=== PATIENT | female | born 1975 | race African-American/Black ===

== ENCOUNTER 2017-04-03 09:43 | Inpatient (IN) ==
[2017-04-03] MEDS ORDERED: KETOROLAC 30 MG/1 ML VIAL IV STA (10:22)
[2017-04-03 10:42] LABS: Basophils % 0.2 % (0.0-0.8); Eosinophils # 0.1 10*3/uL (0.0-0.87); Eosinophils % 0.9 % (0.00-10.9); Hematocrit 26.7 VOL% (35.7-47.0); Hemoglobin 7.1 GM/DL (12.0-16.0); Immature Granulocytes % 0.8 %; Lymphocytes # 1.6 10*3/uL (1.4-4.0); Lymphocytes % 12.7 % (21.3-54.2); Mean Corpuscular HGB Conc 26.6 GM/DL (32-36); Mean Corpuscular Hemoglobin 16 PG (27-34); Mean Platelet Volume 8.7 FL (9.6-12.0); Monocytes % 7.5 % (1.7-12.7); Neutrophils % 77.9 % (38.7-73.9); Platelet Count 369 T/CUMM (130-400); Red Blood Count 4.45 MC/CUMM (3.8-5.5); Red Cell Distribution Width 23.1 % (9.3-17.3); White Blood Count 12.9 T/CUMM (4-12)
[2017-04-03] MEDS ORDERED: KETOROLAC 30 MG/1 ML VIAL ONE (10:51)
--- NOTE | 2017-04-03 11:02 | CT Report ---
History is dental abscess Axial images obtained through the facial bones following administration of 80 cc Omni 350 with 2-D multiplanar reconstruction images also stored and interpreted Findings: Patient is missing multiple teeth. There are large caries of the remaining upper molars on the left. There are several periapical lucencies involving several teeth of the maxilla anteriorly on the left. There are areas of associated anterior cortical dehiscence. Adjacent to this area, in the soft tissues anterior to the maxilla just left of midline, there is a loculated 1 x 2 cm fluid collection with surrounding inflammatory changes No intraorbital mass effect or fluid is seen. 8mm left submandibular nodes present. No paranasal sinus air-fluid levels are seen. No acute facial bone fracture identified. The nasal septum is 6 mm the left of midline with a large hunter bullosa on the right. Both maxillary sinus ostia are patent. Impression: Odontogenic disease including several periapical abscesses in the maxilla anteriorly on the left where there is adjacent facial soft tissue abscess. Please see above details The CT exam was performed using one or more of the following dose reduction techniques: Automated exposure control, adjustment of the mA and/or kV according to patient size, or use of iterative reconstruction technique. PROCEDURE INTERPRETED AT [facility] DEPARTMENT OF RADIOLOGY Final Report Signed by: Dr. Britt Bermudez
[2017-04-03] MEDS ORDERED: CLINDAMYCIN INJ 900 MG in PREMIX 1 EACH IV STA (11:10)
[2017-04-03 11:14] LABS: Calcium 8.6 MG/DL (8.5-10.1); Osmolality,Calculated 276.4 MOS/KG (273-304); Potassium 4.3 MMOL/L (3.5-5.1)
[2017-04-03] MEDS ORDERED: CLINDAMYCIN INJ 50 ML IV ONE (11:14)
--- NOTE | 2017-04-03 11:53 | Emergency Department Note ---
Nion Adan Brooke, am scribing for, and in the presence of, Erin Gordillo DO 10:37. IDuy Whitney, DO, personally performed the services described in this documentation, ascribed by Xiomara Oneill in my presence, and it is both accurate and complete . Arrival - Arrival Chief Complaint: Headache Stated Complaint: Headache, Swollen tooth, face, and throw up ED Nursing Triage Note: C/O HAVING FACIAL PAIN WITH SWELLING SINCE , STATES SHE EARLIER WAS UNABLE TO KEEP THE LEFT EYE OPEN., " FACE PULLING TO ONE SIDE" , STATES THE PULLING STARTED ON TUESDAY., + HEADACHE, + BLURRED VISION IN THE LEFT EYE, PATIENT STATES SHE HAS HAD DENTAL PAIN X 2 WEEKS, DENIES HAVING INCERASE TEMP., + [place], DISCOLORATION NOTED EQUALLY AROUND THE LEFT EYE, SWELLING NOTED TO THE LEFT SIDE OF THE FACE., DENIES HAVING WEAKNESS IN HANDS, DENIES SLURRED SPEECH Mode of Arrival: Ambulatory Limitations: No Limitations Source: Patient, Significant other, RN Notes Reviewed Time Seen by Provider: 04/03/17 10:22 - History of Present Illness HPI Narrative: Patient is a 41 year old female who presents to the ED with c/o headache and edema to the left eye and area around nose and on top of teeth. Patient says she has been having problems since and is worsening with time. She says she was unable to open the left eye, this morning, due to the swelling and she has had some blurry vision in that eye. She has been taking Ibuprofen and gets "some" relief. She says the left side of her face is tender to touch and that her "gums hurt." She says there is some pain in the left side of her throat when swallowing. She denies having teeth pain, fever, dizziness, or abdominal pain but says she has been vomiting. She has been rubbing her eyes a lot and crying due to the passing of a family member. She has never experienced this in the past. Patient has PMHx of HTN and takes medication for it. Patient says no one else in her home has been sick with similar symptoms. Onset (ago): day(s) (4) Date of Last Menstrual Period: TUBAL Allergies/Adverse Reactions: Allergies Allergy/AdvReac Type Severity Reaction Status Date / Time No Known Allergies Allergy Verified 04/03/17 09:49 Home Medications: Home Medications Medication Instructions Recorded Confirmed Type Carvedilol [Coreg] 6.25 mg PO BID 04/03/17 04/03/17 History Review of System - Review of System 12 point system: reviewed and no additional remarkable complaints except as stated - Review of System Constitutional: Absent: fever Eyes: Present: vision change (blurry- left), other (left eye- surrounding edema) Head/Ears/Nose/Throat: Present: other (Pain to left side of face with palpation) Respiratory: Absent: respiratory distress Gastrointestinal: Present: vomiting. Absent: abdominal pain Skin: Present: other (edema to area around left side of nose and top of teeth). Absent: rash Neurological: Present: headache Medical,Surgical,& Family Hx - Medical History Cardio: History of: Hypertension - Family History Family History: Reports;: Family Hypertension - Social History Smoking Status: Never smoker Frequency of Alcohol Use: None Type of Drug Use: None Exam Physical Examination: Multiple broken teeth, including dental caries. Vital Signs: Vital Signs Temperature 98.2 F 04/03/17 10:00 Pulse Rate 108 H 04/03/17 10:00 Respiratory Rate 20 04/03/17 10:00 Blood Pressure 181/107 04/03/17 10:00 O2 Sat by Pulse Oximetry 100 04/03/17 09:45 - General General appearance: alert, in no apparent distress - Head Head exam: Present: atraumatic, normocephalic - Eye Eye exam: Present: PERRL, EOMI, other (left eye- surrounding edema) - ENT ENT exam: Present: mucous membranes moist, other (large 3x3cm induration/ fluctant area on left of nare that is tender to palpation. L orbit is edematous) - Neck Neck exam: Present: normal inspection. Absent: lymphadenopathy - Chest Chest inspection: Present: normal inspection, symmetric chest wall rise - Respiratory Respiratory exam: Present: normal lung sounds bilaterally - Cardiovascular Cardiovascular exam: Present: regular rate, normal rhythm, normal heart sounds - Abdominal Exam Abdominal exam: Present: soft. Absent: distention, tenderness - Extremities Exam Extremities exam: Present: normal inspection - Back Exam Back exam: Present: normal inspection - Neurological Exam Neurological exam: Present: alert, oriented X3 - Psychiatric Psychiatric exam: Present: normal affect, normal mood - Skin Skin exam: Present: warm, dry, intact, normal color, other (Area of induration to the left side of nose and on top of teeth) Course Course Narrative: Large visible 3 cm x 3 cm indurated fluctuant abscess to the left of the nose. Suspected dental origin. CT scan confirms. Will give some clindamycin IV as well as Toradol and morphine for pain. Discussed the case with the ENT on-call Dr. waters. He recommended Dr. boswell who will admit the patient and hopefully do surgery today. Patient has not eaten today I have told her that she will be getting surgery for this. I have placed admission orders Results - Labs CBC & BMP: 04/03/17 10:22 04/03/17 10:24 Lab Results: I have reviewed the patients labs Labs: Laboratory Tests 04/03/17 10:22 WBC 12.9 H RBC 4.45 Hgb 7.1 L Hct 26.7 L MCV 60.0 L MCH 16 L MCHC 26.6 L RDW 23.1 H Plt Count 369 MPV 8.7 L Neut % (Auto) 77.9 H Lymph % (Auto) 12.7 L [place] % (Auto) 7.5 Eos % (Auto) 0.9 Baso % (Auto) 0.2 Neut # (Auto) 10.0 H Lymph # (Auto) 1.6 [place] # (Auto) 1.0 H Eos # (Auto) 0.1 Baso # (Auto) 0.0 Immature Gran % 0.8 Nucleated RBC % 0.0 Immature Gran # 0.10 Nucleated RBCs # 0.00 - Diagnostic Findings Procedure: CT: image reviewed by me, report reviewed by me (Large left-sided dental abscess with loculation) Disposition Clinical Impression: Dental abscess Case discussed with: patient Disposition: Still a Patient Condition: Stable
--- NOTE | 2017-04-03 12:17 | History & Physical Report ---
Assessment and Plan (1) Dental abscess Status: Acute Assessment and plan: 41 yo F with left maxillary canine space abscess secondary to multiple carious teeth 1. NPO for I&D of dental abscess and extraction of teeth today 2. iv clindamycin, pain control Current Visit: Yes History of Present Illness Chief complaint: facial swelling and pain History of present illness: Ms. Boss is a 41 year old female who presented to the ED with left facial pain and swelling for past 2 days, worsening since. No dysphagia, no dyspnea, no f/c. C/o vomiting. CT scan shows large abscess of left maxillary canine space likely due to carious teeth. Home Medications Medication Instructions Recorded Confirmed Type Carvedilol [Coreg] 6.25 mg PO BID 04/03/17 04/03/17 History Allergies Allergy/AdvReac Type Severity Reaction Status Date / Time No Known Allergies Allergy Verified 04/03/17 09:49 - Constitutional Constitutional: Present: as per HPI - EENT Eyes: Present: blurry vision, other (left eye erythema and irritation) Nose, mouth and throat: Present: sinus pressure, other (left facial pain, left maxillary dental pain, no intraoral drainage) Medical,Surgical,& Family Hx - Medical History Cardio: History of: Hypertension HEENT: History of: Dental Problems - Family History Family History: Reports;: Family Hypertension - Social History Smoking Status: Never smoker Frequency of Alcohol Use: None Type of Drug Use: None Exam - Constitutional Vitals: Period Temp Pulse Resp BP Sys/Worrell Pulse Ox Last 24 Hr 98.2 F-98.2 F 108-108 20-20 181-181/107-107 100 General appearance: mild distress - Eye Eye exam: Present: EOMI, conjunctival injection Pupils: Present: KALINA - ENT ENT exam: Present: other (left facial swelling and induration, mild fluctuance palpable; multiple carious teeth. left maxillary buccal vestibular swelling) Results - Labs CBC & BMP: 04/03/17 10:22 04/03/17 10:24
[2017-04-03 12:42] LABS: Hypochromasia 2+; Macrocytosis 1+; Microcytosis 1+; Polychromasia Slight
[2017-04-03] MEDS ORDERED: PROPOFOL 200 MG/20 ML VIAL IV ONE (13:05)
[2017-04-03] MEDS ORDERED: ONDANSETRON 4 MG/2 ML VIAL ONE (13:05)
[2017-04-03] MEDS ORDERED: LIDOCAINE 2%/EPI 20 ML VIAL ONE (13:15)
[2017-04-03] MEDS ORDERED: LACTATED RINGERS 1,000 ML IV SCH (13:30)
--- NOTE | 2017-04-03 13:41 | Anesthesia Post-Op ---
Anesthesia Post OP - Post Ansesthetic Evaluation Patient seen in post op: Yes Resp: within normal limits CV: within normal limits Mental: within normal limits Temp: within normal limits [id number]: within normal limits Nausea and Vomiting: within normal limits Pain: within normal limits
[2017-04-03] MEDS ORDERED: SEVOFLURANE 1 UNIT/15 MINUTE INH ONE (13:43)
--- NOTE | 2017-04-03 13:43 | Operative Note ---
Date of procedure: 04/03/17 Pre-op diagnosis: left maxillary canine space abscess, carious teeth #7,8,9,10, 11,15 Post-op diagnosis: same Procedure: Incision and drainage of left maxillary canine space abscess, extraction of carious teeth #7,8,9,10,11,15 Anesthesia: GETA, local (10cc 2% lidocaine with 1:100k epinephrine) Surgeon / Physician: Maik Carrasco Estimated blood loss: none Specimens: other (teeth) Condition: stable Disposition: observation Results - Labs CBC & BMP: 04/03/17 10:22 04/03/17 10:24 Lab Results: I have reviewed the past 24 hour labs Discharge Plan - Discharge Medications No Action Carvedilol [Coreg] 6.25 mg PO BID - Follow Up or Referral - Forms/Instructions
[2017-04-03] MEDS ORDERED: MIDAZOLAM 2 MG/2 ML VIAL ONE (13:44)
[2017-04-03] MEDS ORDERED: fentaNYL 100 MCG/2 ML VIAL ONE (13:44)
[2017-04-03] MEDS ORDERED: ACETAMINOPHEN 1,000 MG/100 ML VIAL IV ONE (13:44)
[2017-04-03] MEDS ORDERED: MORPHINE 2 MG/1 ML SYRINGE IV STA (14:47)
[2017-04-03] MEDS ORDERED: ONDANSETRON 4 MG/2 ML VIAL IV PRN (14:47)
[2017-04-03] MEDS ORDERED: MORPHINE 2 MG/1 ML SYRINGE IV PRN (14:47)
[2017-04-03] MEDS: SODIUM CHLORIDE 0.9% 1,000 ML IV SCH ×2 (15:18→23:34)
[2017-04-03] MEDS: CLINDAMYCIN INJ 600 MG in PREMIX 1 EACH IV SCH ×2 (15:18→20:43)
[2017-04-03] MEDS: CARVEDILOL 6.25 MG TABLET PO SCH (20:42)
[2017-04-03] MEDS: oxyCODONE/ACETAMINOPHEN 5-325 MG TABLET PO PRN (20:42)
[2017-04-03] MEDS: CHLORHEXIDINE 0.12% ORAL RINSE 60 ML BOTTLE SWISH/SPIT SCH (20:47)
[2017-04-04] MEDS: oxyCODONE/ACETAMINOPHEN 5-325 MG TABLET PO PRN ×2 (00:15→06:20)
[2017-04-04] MEDS: CLINDAMYCIN INJ 600 MG in PREMIX 1 EACH IV SCH ×2 (02:31→08:20)
[2017-04-04] MEDS: SODIUM CHLORIDE 0.9% 1,000 ML IV SCH (06:22)
[2017-04-04] MEDS: CHLORHEXIDINE 0.12% ORAL RINSE 60 ML BOTTLE SWISH/SPIT SCH (08:18)
[2017-04-04] MEDS: CARVEDILOL 6.25 MG TABLET PO SCH (08:18)
[2017-04-04 11:52] VITALS: BP 116/75
--- NOTE | 2017-04-04 12:21 | Discharge Summary ---
Hospital Course - Hospital Course Hospital Course: Patient presented to ED on 04/03/2017 with left facial swelling. CT scan showed left maxillary abscess and carious teeth. Patient was taken to OR same day for I&D left maxillary canine space abscess and extraction of all upper teeth. Patient tolerated surgery well and was recovered and admitted for IV antibiotics and observation. Patient did well overnight, no f/c, swelling improved, tolerating regular diet. Deemed appropriate for discharge home on 09/2017. Diagnosis - Discharge Diagnosis (1) Dental abscess Status: Resolved Specialty Discharge - Follow Up or Referrals Follow up with: Maik Carrasco MD [Physician] - - Speciality Discharge Instructions Oral Surgery Instructions: salt water rinses 4 times daily and after all meals; ok to brush teeth; head elevated at all times Discharge Plan - Discharge Data Disposition: Disch To Home/Self Care Condition at Discharge: Stable Discharge Diet: advance to your usual diet Activity: resume usual activities as tolerated Hygiene: no restrictions, may shower Weight Bearing at Discharge: full weight bearing Driving: no restrictions Contact your physician if you experience:: fever over 101 - Discharge Medications No Action Carvedilol [Coreg] 6.25 mg PO BID - Follow Up or Referral Follow Up: Maik Carrasco MD [Physician] - - Forms/Instructions Forms: Acute Care Work/School Release Exam - Constitutional Vitals: Period Temp Pulse Resp BP Sys/Worrell Pulse Ox Last 24 Hr 97.4 F-98.7 F 87-122 16-23 95-157/50-96 90-100 General appearance: mild distress - Eye Eye exam: Present: EOMI - ENT ENT exam: Present: other (left facial swelling improved; intraoral extraction sites healing well. ) Discharge Results Procedures and tests throughout hospitalization: Pending Orders 04/03/17 10:24 Blood Culture Stat Labs on day of discharge: Labs from last 24 hours 04/03/17 10:22 Polychromasia Slight Hypochromasia 2+ Microcytosis 1+ Macrocytosis 1+ Preliminary micro results at discharge 04/03/17 10:24 Blood Culture - Preliminary Blood No growth at 1 day 04/03/17 10:24 Blood Culture - Preliminary Blood No growth at 1 day DS: Provider Date of admission: 04/03/17 11:42 Primary care physician: . No PCP Attending physician on admission: Maik Carrasco MD Discharging clinician: Maik Carrasco MD Expected date of discharge: 04/04/17
--- NOTE | 2017-04-05 11:18 | Pathology Report from [facility] ---
[facility] [place] ACCESSION # : [id number] PATIENT NAME : Farida Marin ORDERING DR : Maik Carrasco DDS CLINICAL HX: Dental abscess POST-OP DX: Same SPECIMEN INFO: Teeth GROSS DESCRIPTION: Received in formalin labeled FARIDA MARIN are teeth and teeth fragments with evidence of decay submitted for gross exam only. DIAGNOSIS FOR FARIDA MARIN: Carious teeth and teeth fragments, gross only. COLLECTED DATE: 04/04/2017 [facility] REPORT DATE: 04/05/2017 ELECTRONICALLY SIGNED BY: Jesus Manuel Constantino M.D. 04/05/2017 - 9:43:09 [facility]
--- NOTE | 2017-05-11 16:25 | Operative Note ---
DATE OF PROCEDURE: 04/04/2017 PREOPERATIVE DIAGNOSIS: LEFT MAXILLARY CANINE ABSCESS. POSTOPERATIVE DIAGNOSIS: SAME. OPERATION PERFORMED: 1. Incision and drainage of left maxillary canine space abscess. 2. Extraction of teeth #7, #8, #9, #10, #11 and #15. SURGEON: Maik Carrasco DMD, MD ANESTHESIA: General via orotracheal tube. DESCRIPTION OF PROCEDURE: The patient was taken to the operating area in a sedated condition and fredy dieter in the supine position on the operating room table. After successful induction of anesthesia and placement of an oral endotracheal tube, the patient was prepped and draped in usual fashion for an i ntraoral surgical procedure. Attention was directed intraorally. The oropharynx was suctioned freed of any kind of secretions and debris. A moistened throat pack was placed about the endotracheal tub e. Lidocaine 2% with 1:100,000 epinephrine was then infiltrated into the maxillary labial areas. At tention was directed to the left maxilla, where a mucoperiosteal flap was used to expose teeth # 7, # 8, #9, #10, #11, and #15. All teeth were then extracted without any complications. Blunt dissection was then used with a #[address] all the way up to the inferior orbital area and approxim ately 2 mL of purulent discharge was drained. The entire area was then irrigated copiously with norm al saline solution. The area was left open to drain. Sponge count and needle counts were correct at the termination. The patient tolerated the procedure well, extubated in the operating room and dean sferred to the recovery area in a stable condition.
== END 2017-04-04 13:53 | disposition home or self-care (01) | DRG 159 ==
LOC: N.ED 09:43 → N.EDINP 11:42 → N.3E 13:00
PROVIDERS: ADMIT Dentist Oral and Maxillofacial Surgery; ATTEND Dentist Oral and Maxillofacial Surgery

== ENCOUNTER 2019-05-31 16:54 | Observation (INO) ==
[2019-05-31] MEDS ORDERED: METOPROLOL TARTRATE 5 MG/5 ML VIAL IV STA (17:24)
[2019-05-31 17:43] LABS: Apearance,Urine CLEAR (Clear); Bacteria,Urine Occasional /HPF (Few); Bilirubin,Urine Negative (Negative); Blood, Urine Small mg/dL (Negative); Glucose,Urine (UA) Negative (Negative); Ketones,Urine Negative (Negative); Mucus,Urine Occasional /LPF (Occasional); Nitrite,Urine Negative (Negative); Protein,Urine Negative; RBC,Urine 2 /HPF (0-4); Squamous Epithelial Cell,Urine Occasional /HPF (0-10); Urine Color Straw (Yellow); Urine Specific Gravity 1.008 (1.001-1.035); Urine Urobilinogen < 2.0 EU/DL (0.2-1.0); WBC,Urine 3 /HPF (0-6)
[2019-05-31 18:09] LABS: Basophils % 0.2 % (0.0-0.8); Immature Granulocytes % 0.5 %; Immature Granulocytes Absolute 0.04 #; Mean Platelet Volume 9.1 FL (9.6-12.0); Platelet Count 336 T/CUMM (130-400)
[2019-05-31 18:24] LABS: % Iron Saturation 3.6 % (18-50); Albumin 3.6 G/DL (3.4-5.0); Bilirubin,Total 0.6 MG/DL (0.2-1.0); Calcium 8.5 MG/DL (8.5-10.1); Ferritin 2.8 ng/ml (8-252); Osmolality,Calculated 275.5 MOS/KG (273-304); Total Protein 7.4 G/DL (6.4-8.3)
[2019-05-31 18:30] LABS: Eosinophils # 0.1 10*3/uL (0.0-0.87); Eosinophils % 1.2 % (0.00-10.9); Folate 11.2 NG/ML (5.4-24.0); Hematocrit 23.7 VOL% (35.7-47.0); Lymphocytes % 24.1 % (21.3-54.2); Mean Corpuscular HGB Conc 26.6 GM/DL (32-36); Mean Corpuscular Volume 61.2 FL (87-102); Monocytes % 9.5 % (1.7-12.7); NRBC # 0.02 10*3/uL; Neutrophils % 64.5 % (38.7-73.9); Red Blood Count 3.87 MC/CUMM (3.8-5.5); Red Cell Distribution Width 20.4 % (9.3-17.3); White Blood Count 8.2 T/CUMM (4-12)
[2019-05-31 18:36] LABS: Hemoglobin 6.3 GM/DL (12.0-16.0)
[2019-05-31] MEDS ORDERED: ACETAMINOPHEN 325 MG TABLET PO PRN (19:09)
[2019-05-31] MEDS ORDERED: SODIUM CHLORIDE 0.9% 1,000 ML IV PRN (19:13)
[2019-05-31] MEDS ORDERED: IBUPROFEN 600 MG TABLET PO PRN (20:42)
[2019-06-01 05:42] LABS: Basophils % 0.4 % (0.0-0.8); Eosinophils # 0.1 10*3/uL (0.0-0.87); Eosinophils % 1.8 % (0.00-10.9); Hematocrit 28.8 VOL% (35.7-47.0); Hemoglobin 8.1 GM/DL (12.0-16.0); Immature Granulocytes % 0.4 %; Immature Granulocytes Absolute 0.03 #; Lymphocytes # 1.8 10*3/uL (1.4-4.0); Lymphocytes % 24.6 % (21.3-54.2); Mean Corpuscular HGB Conc 28.1 GM/DL (32-36); Mean Corpuscular Volume 65.8 FL (87-102); Mean Platelet Volume 9.5 FL (9.6-12.0); Neutrophils % 61.8 % (38.7-73.9); Platelet Count 319 T/CUMM (130-400); Red Blood Count 4.38 MC/CUMM (3.8-5.5); Red Cell Distribution Width 24.6 % (9.3-17.3); White Blood Count 7.3 T/CUMM (4-12)
[2019-06-01 05:51] LABS: Hypochromasia 1+; Ovalocytes Slight; Platelet Estimate Adequate
[2019-06-01 05:52] LABS: Microcytosis Slight
[2019-06-01] MEDS ORDERED: IRON SUCROSE 300 MG in SODIUM CHLORIDE 0.9% 100 ML IV ONE (08:00)
[2019-06-01 11:37] VITALS: BP 144/77
== END 2019-06-01 11:20 | disposition home or self-care (01) ==
LOC: N.ED 16:54 → N.EDINP 16:54 → SUATTDRO 19:09 → N.4E 20:28
PROVIDERS: ADMIT Internal Medicine; ATTEND Family Medicine

== ENCOUNTER 2019-08-14 09:04 | Observation (INO) ==
[2019-08-14 10:32] LABS: Apearance,Urine Slightly Hazy (Clear); Bacteria,Urine Occasional /HPF (Few); Bilirubin,Urine Negative (Negative); Blood, Urine Moderate mg/dL (Negative); Glucose,Urine (UA) Negative (Negative); Ketones,Urine 5 mg/dL (Negative); Mucus,Urine Few /LPF (Occasional); Nitrite,Urine Negative (Negative); Protein,Urine 30 MG/DL; RBC,Urine 13 /HPF (0-4); Squamous Epithelial Cell,Urine Occasional /HPF (0-10); Urine Color Yellow (Yellow); Urine Specific Gravity 1.024 (1.001-1.035); Urine Urobilinogen < 2.0 EU/DL (0.2-1.0); WBC,Urine 56 /HPF (0-6)
[2019-08-14 10:50] LABS: Basophils % 0.2 % (0.0-0.8); Eosinophils # 0.1 10*3/uL (0.0-0.87); Eosinophils % 0.5 % (0.00-10.9); Hemoglobin 6.9 GM/DL (12.0-16.0); Immature Granulocytes % 0.7 %; Immature Granulocytes Absolute 0.07 #; Lymphocytes # 1.3 10*3/uL (1.4-4.0); Mean Corpuscular HGB Conc 28.8 GM/DL (32-36); Mean Corpuscular Volume 72.7 FL (87-102); Mean Platelet Volume 8.9 FL (9.6-12.0); Neutrophils % 78.6 % (38.7-73.9); Platelet Count 345 T/CUMM (130-400); Red Cell Distribution Width 20.3 % (9.3-17.3)
[2019-08-14 11:27] LABS: Albumin 3.9 G/DL (3.4-5.0); Bilirubin,Total 0.7 MG/DL (0.2-1.0); Calcium 9.1 MG/DL (8.5-10.1); Osmolality,Calculated 281.1 MOS/KG (273-304); Total Protein 7.2 G/DL (6.4-8.3)
[2019-08-14] MEDS ORDERED: ONDANSETRON 4 MG/2 ML VIAL IV STA (11:56)
[2019-08-14] MEDS ORDERED: MORPHINE 4 MG/1 ML VIAL IV STA (11:56)
[2019-08-14] MEDS ORDERED: SODIUM CHLORIDE 0.9% 1,000 ML IV PRN ×3 (12:16→13:50)
[2019-08-14] MEDS ORDERED: ACETAMINOPHEN 325 MG TABLET PO PRN (12:34)
[2019-08-14] MEDS ORDERED: DOCUSATE SODIUM 100 MG CAPSULE PO PRN (12:34)
[2019-08-14] MEDS ORDERED: ONDANSETRON 4 MG/2 ML VIAL IV PRN (12:34)
[2019-08-14] MEDS ORDERED: IBUPROFEN 200 MG TABLET PO PRN (12:34)
[2019-08-14] MEDS ORDERED: BISACODYL 5 MG TABLET PO PRN (12:34)
[2019-08-14] MEDS ORDERED: cefTRIAXone 1,000 MG in SYRINGE 1 EACH IV SCH (13:00)
[2019-08-14] MEDS ORDERED: SODIUM CHLORIDE 0.9% 1,000 ML IV SCH (13:00)
[2019-08-14 13:07] LABS: % Iron Saturation 3.3 % (18-50); Ferritin 4.3 ng/ml (8-252)
[2019-08-14] MEDS ORDERED: cefTRIAXone 1,000 MG in SODIUM CHLORIDE 0.9% 100 ML IV SCH (15:30)
[2019-08-14] MEDS: MEPERIDINE 50 MG/1 ML VIAL IV PRN (19:35)
[2019-08-14] MEDS: FERROUS SULFATE 325 MG TABLET PO SCH (20:57)
[2019-08-15] MEDS: MEPERIDINE 50 MG/1 ML VIAL IV PRN (01:10)
[2019-08-15 04:37] LABS: Basophils % 0.2 % (0.0-0.8); Eosinophils # 0.1 10*3/uL (0.0-0.87); Eosinophils % 0.7 % (0.00-10.9); Hematocrit 30.8 VOL% (35.7-47.0); Immature Granulocytes % 0.5 %; Immature Granulocytes Absolute 0.07 #; Lymphocytes # 1.3 10*3/uL (1.4-4.0); Lymphocytes % 9.9 % (21.3-54.2); Mean Corpuscular HGB Conc 31.2 GM/DL (32-36); Monocytes % 8.4 % (1.7-12.7); Neutrophils % 80.3 % (38.7-73.9); Platelet Count 306 T/CUMM (130-400); Red Blood Count 4.05 MC/CUMM (3.8-5.5); Red Cell Distribution Width 19.4 % (9.3-17.3); White Blood Count 13.4 T/CUMM (4-12)
[2019-08-15 04:41] LABS: Hemoglobin 9.6 GM/DL (12.0-16.0)
[2019-08-15 08:07] VITALS: BP 139/64
[2019-08-15] MEDS: FERROUS SULFATE 325 MG TABLET PO SCH (08:18)
[2019-08-15] MEDS ORDERED: PANTOPRAZOLE 40 MG TABLET PO SCH (09:00)
== END 2019-08-15 09:27 | disposition home or self-care (01) ==
LOC: N.ED 09:04 → N.EDINP 09:04 → N.2W 13:30
PROVIDERS: ADMIT Hospitalist; ATTEND Hospitalist

== ENCOUNTER 2019-10-29 16:09 | Observation (INO) ==
[2019-10-29] MEDS ORDERED: hydrALAZINE 20 MG/1 ML VIAL IV STA (20:13)
[2019-10-29] MEDS ORDERED: ONDANSETRON 4 MG/2 ML VIAL IV STA (20:13)
[2019-10-29] MEDS ORDERED: ALBUTEROL/IPRATROPIUM 3 ML NEB RESP TX STA (20:13)
[2019-10-29] MEDS ORDERED: ASPIRIN 325 MG TABLET PO STA (20:13)
[2019-10-29] MEDS ORDERED: methylPREDNISolone SOD SUC 125 MG/2 ML VIAL IV STA (20:13)
[2019-10-29 20:43] LABS: Basophils % 0.4 % (0.0-0.8); Eosinophils # 0.2 10*3/uL (0.0-0.87); Eosinophils % 1.8 % (0.00-10.9); Immature Granulocytes % 0.7 %; Immature Granulocytes Absolute 0.07 #; Lymphocytes # 2.3 10*3/uL (1.4-4.0); Mean Corpuscular Volume 69.4 FL (87-102); Mean Platelet Volume 9.5 FL (9.6-12.0); Monocytes % 6.5 % (1.7-12.7); Neutrophils % 68.6 % (38.7-73.9); Platelet Count 321 T/CUMM (130-400); Red Cell Distribution Width 19.2 % (9.3-17.3); White Blood Count 10.3 T/CUMM (4-12)
[2019-10-29 20:55] LABS: Apearance,Urine CLEAR (Clear); Bacteria,Urine Occasional /HPF (Few); Bilirubin,Urine Negative (Negative); Blood, Urine Large mg/dL (Negative); Glucose,Urine (UA) Negative (Negative); Ketones,Urine Negative (Negative); Mucus,Urine Occasional /LPF (Occasional); Nitrite,Urine Negative (Negative); Protein,Urine Negative; RBC,Urine 2 /HPF (0-4); Squamous Epithelial Cell,Urine Occasional /HPF (0-10); Urine Color Yellow (Yellow); Urine Specific Gravity 1.026 (1.001-1.035); WBC,Urine 1 /HPF (0-6)
[2019-10-29 20:59] LABS: Barbiturates Screen,Urine Negative (Negative); Benzodiazepines Screen,Urine Negative (Negative); Cannabinoid Screen,Urine Negative (Negative); Opiate Screen,Urine Negative (Negative); Phencyclidine Screen,Urine Negative (Negative)
[2019-10-29 21:00] LABS: Albumin 3.6 G/DL (3.4-5.0); Bilirubin,Total 0.5 MG/DL (0.2-1.0); Calcium 8.7 MG/DL (8.5-10.1); Osmolality,Calculated 277.4 MOS/KG (273-304); Total Protein 7.3 G/DL (6.4-8.3)
[2019-10-29 21:23] LABS: Anisocytosis 2+; Hypochromasia 2+; Microcytosis 3+; Platelet Estimate Normal; Polychromasia Slight
[2019-10-29 21:24] LABS: Ovalocytes Few
[2019-10-29 21:25] LABS: Target Cells Slight
[2019-10-29] MEDS ORDERED: SODIUM CHLORIDE 0.9% 1,000 ML IV PRN (22:26)
[2019-10-29] MEDS ORDERED: ONDANSETRON 4 MG/2 ML VIAL IV PRN (22:26)
[2019-10-29] MEDS ORDERED: ACETAMINOPHEN 325 MG TABLET PO PRN (22:26)
[2019-10-29] MEDS ORDERED: SODIUM CHLORIDE 0.45% 1,000 ML IV SCH (22:30)
[2019-10-29 22:55] LABS: Ferritin 4.5 ng/ml (8-252)
[2019-10-30] MEDS: LISINOPRIL/HCTZ 10-12.5 MG TABLET PO SCH ×2 (00:19→21:26)
[2019-10-30] MEDS: FERROUS SULFATE 325 MG TABLET PO SCH ×4 (10:25→21:26)
[2019-10-30] MEDS: PANTOPRAZOLE 40 MG TABLET PO SCH (10:25)
[2019-10-30] MEDS: BUTALBITAL/ACETAMIN/CAFFEINE 50-325-40 MG TABLET PO PRN ×2 (11:46→21:27)
[2019-10-30 12:29] LABS: Basophils % 0.1 % (0.0-0.8); Hematocrit 30.1 VOL% (35.7-47.0); Hemoglobin 8.8 GM/DL (12.0-16.0); Immature Granulocytes % 1.1 %; Immature Granulocytes Absolute 0.16 #; Lymphocytes # 1.2 10*3/uL (1.4-4.0); Lymphocytes % 8.3 % (21.3-54.2); Mean Corpuscular HGB Conc 29.2 GM/DL (32-36); Mean Corpuscular Volume 72.2 FL (87-102); Mean Platelet Volume 9.5 FL (9.6-12.0); Monocytes % 2.4 % (1.7-12.7); Neutrophils % 88.1 % (38.7-73.9); Platelet Count 372 T/CUMM (130-400); Red Blood Count 4.17 MC/CUMM (3.8-5.5); Red Cell Distribution Width 20.3 % (9.3-17.3)
[2019-10-30] MEDS ORDERED: SODIUM CHLORIDE 0.9% 1,000 ML IV PRN (15:16)
[2019-10-30] MEDS: POLYETHYLENE GLYCOL POWDER 17 GM PACK PO SCH (21:25)
[2019-10-30] MEDS: DOCUSATE SODIUM 100 MG CAPSULE PO SCH (21:26)
[2019-10-31 04:41] LABS: Basophils % 0.2 % (0.0-0.8); Eosinophils # 0.1 10*3/uL (0.0-0.87); Eosinophils % 0.8 % (0.00-10.9); Hematocrit 28.2 VOL% (35.7-47.0); Hemoglobin 8.2 GM/DL (12.0-16.0); Immature Granulocytes % 1.3 %; Immature Granulocytes Absolute 0.17 #; Lymphocytes # 2.8 10*3/uL (1.4-4.0); Lymphocytes % 21.8 % (21.3-54.2); Mean Corpuscular HGB Conc 29.1 GM/DL (32-36); Mean Corpuscular Volume 72.5 FL (87-102); Mean Platelet Volume 9.5 FL (9.6-12.0); Monocytes % 6.4 % (1.7-12.7); Neutrophils % 69.5 % (38.7-73.9); Platelet Count 315 T/CUMM (130-400); Red Blood Count 3.89 MC/CUMM (3.8-5.5); Red Cell Distribution Width 19.9 % (9.3-17.3); White Blood Count 12.9 T/CUMM (4-12)
[2019-10-31 05:13] LABS: Osmolality,Calculated 279.4 MOS/KG (273-304)
[2019-10-31 09:14] LABS: Troponin I < 0.015 NG/ML (0.00-0.045)
[2019-10-31] MEDS: DOCUSATE SODIUM 100 MG CAPSULE PO SCH (10:11)
[2019-10-31] MEDS: PANTOPRAZOLE 40 MG TABLET PO SCH (10:11)
[2019-10-31] MEDS: FERROUS SULFATE 325 MG TABLET PO SCH ×2 (10:11)
[2019-10-31] MEDS: POLYETHYLENE GLYCOL POWDER 17 GM PACK PO SCH (10:12)
[2019-10-31 12:24] VITALS: BP 102/64
== END 2019-10-31 15:05 | disposition home or self-care (01) ==
LOC: N.ED 16:09 → N.EDINP 16:09 → SUATTDRO 22:26 → N.5E 22:42
PROVIDERS: ADMIT Emergency Medicine; ATTEND Internal Medicine Cardiovascular Disease